=== PATIENT | male | born 1965 | race Caucasian/White ===

== ENCOUNTER 2017-04-08 09:58 | Emergency (ER) | payer OTHER ==
[~2017-04-08] VITALS: Ht 177.8 cm; Wt 125.0 kg
[~2017-04-08 09:58] MED LIST: Benicar PO; FLEXERIL5 MG PO; NORCO 5/3251 TABLET PO; VOLTAREN75 MG PO; Vicodin,Lortab 5/500 PO; Voltaren PO
[2017-04-08] MEDS ORDERED: PERCOCET 5/31 TABLET PO (11:13)
[2017-04-08 11:30] VITALS: BP 149/81
== END 2017-04-08 11:31 | disposition home or self-care (01) ==
LOC: EME 09:58 → EXP 09:58
DX: M19.012 Primary osteoarthritis, left shoulder (principal)
CPT/HCPCS: 73030; 99281; 99283